=== PATIENT | female | born 2000 | race Caucasian/White ===

== ENCOUNTER → 2019-12-14 | Outpatient (CLI) | payer OTHER ==
--- NOTE | 2019-12-14 15:50 | RAD ---
EXAM: Left foot, 3 views. HISTORY: Twisting injury. COMPARISON: None. FINDINGS: 3 views of the left foot are obtained. There is no fracture, dislocation or subluxation. IMPRESSION: No acute osseous finding. Electronically signed by: Maddie Ivan MD (12/14/2019 3:47 PM) [id number]
== END ==
LOC: DXRAD 15:21
PROVIDERS: ATTEND Family Medicine
DX: M79.672 Pain in left foot (principal)
CPT/HCPCS: 73630

== ENCOUNTER → 2020-10-06 | Outpatient (CLI) | payer OTHER ==
[~2020-10-06] MED LIST: IOHEXOL 240 MG/ML 50ML VIAL. PO ONE; IOHEXOL 300 MG/ML 75 ML VIAL. IV ONE
--- NOTE | 2020-10-06 16:52 | RAD ---
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 Comparisons: None FINDINGS: Uterus measures 8.5 x 3.6 cm. Endometrium is 4 mm in thickness. Right ovary measures 5.2 x 2.6 x 2.6 cm. Left ovary measures 4.0 x 2.5 x 1.8 cm. Vascular flow identified within the ovaries bilaterally. IMPRESSION: 1. Normal sonographic appearance of the ovaries bilaterally. No evidence for torsion. 2. Normal sonographic appearance of the uterus. Electronically signed by: Cesilia Leonard MD (10/06/2020 4:50 PM) [facility]
--- NOTE | 2020-10-06 19:01 | RAD ---
PQRS Compliance Statement: One or more of the following individualized dose reduction techniques were utilized for this examinat ion: 1. Automated exposure control 2. Adjustment of the mA and/or kV according to patient size 3. Use of iterative reconstruction technique CT ABDOMEN+PELVIS W Clinical Indication: Reason: RLQ PAIN / Comparison: None. Technique: Helical CT imaging of the abdomen and pelvis is performed after 75 cc of Omnipaque 300 IV contrast. Oral contrast not administered. Findings: The lung bases are clear. Cardiac size is normal. The liver, gallbladder, spleen, pancreas, adrenal glands, abdominal aorta, and kidneys are normal. Th ere is bifid left collecting system. There is no obvious abnormality of the stomach. There is no dilated small bowel. The appendix is norm al. Scattered stool in the colon. There is no colon wall thickening. No abdominal adenopathy or free fluid. There is mild pelvic free fluid. There are small ovarian follicles bilaterally. Uterus is anteverted. Question arcuate uterus. Urinary bladder is not well distended accentuating the wall thickness. No i nguinal adenopathy. No acute bone abnormality. IMPRESSION: 1. No acute abdominal or pelvic abnormality. The appendix is normal. 2. Mild pelvic free fluid, probably physiologic. Electronically signed by: Dakota Lewis MD (10/06/2020 6:59 PM) [facility]
== END ==
LOC: US 15:55
PROVIDERS: ATTEND Specialist
DX: N83.02 Follicular cyst of left ovary (principal); N83.01 Follicular cyst of right ovary; N32.89 Other specified disorders of bladder
CPT/HCPCS: 74177; 76856; Q9966; Q9967

== ENCOUNTER 2021-06-15 12:01 | Emergency (ER) | payer BC, OTHER ==
[~2021-06-15] VITALS: Ht 165.1 cm; Wt 102.3 kg
[2021-06-15 12:39] VITALS: BP 128/75
--- NOTE | 2021-06-15 13:02 | PHYS DOC ---
Past History Past Medical History: Migraines Additional Past Medical Histor: POTS (DEEDEE MANCIA) Past Surgical History: No Surgical History (DEEDEE MANCIA) Smoking: Non-smoker Alcohol Use: None Drug Use: None (DEEDEE MANCIA) General Adult EDM: Chief Complaint: CHEST PAIN HPI: HPI: Patient is a 21 year old female with history of POTS and cyclic vomiting syndrome who presents with an episode of chest tightness and palpitations that occurred at work this morning. She reports her chest tightness 4/10 and nonradiating. Patient states that she was sitting at her desk when her symptoms began. Patient describes it as "adrenaline coursing through my body." She states that her heart rate was in the 150s and then dropped to 44 bpm. She reports associated diaphoresis and shortness of breath. She reports she was diagnosed with postural orthostatic tachycardia syndrome 1-1/2-2 years ago. Patient denies fever, chills, cough. Patient reports she is a social drinker but does not use any illicit drugs. Patient has no other complaints at this time. (DEEDEE MANCIA) Review of Systems: Review of Systems: Constitutional: See HPI Respiratory: See HPI Cardiovascular: See HPI GI: Denies abdominal pain, nausea, vomiting, bloody stools or diarrhea : Denies dysuria or hematuria Musculoskeletal: Denies back pain or joint pain Integument: Denies rash or other skin lesions Neurologic: Denies headache, focal weakness or sensory changes Endocrine: Denies polyuria or polydipsia Psychiatric: Denies depression or anxiety (DEEDEE MANCIA) Allergies: Allergies: Allergies Coded Allergies Type Severity Reaction Last Updated Verified No Known Drug Allergies 12/30/13 No (DEEDEE MANCIA) Physical Exam: PE: Constitutional: Well developed, well nourished, no acute distress, non-toxic appearance. Cardiovascular: Heart rate regular rhythm, no murmur. Lungs & Thorax: Bilateral breath sounds clear to auscultation. Abdomen: Bowel sounds normal, soft, no tenderness, no masses, no pulsatile masses. Skin: Warm, dry, no erythema, no rash. Extremities: No tenderness, no cyanosis, no clubbing, ROM intact, no edema. Neurologic: Alert and oriented X 3, normal motor function, normal sensory function, no focal deficits noted. Psychologic: Affect normal, judgement normal, mood normal. (DEEDEE MANCIA) Current Patient Data: Vital Signs: Vital Signs Date Time Temp Pulse Resp B/P (MAP) Pulse Ox O2 Delivery O2 Flow Rate FiO2 06/15/21 12:39 98.7 84 18 128/75 (92) 99 Room Air (DEEDEE MANCIA) EKG: EKG: EKG Interpreted by Dr. Herron at 1211: Regular rate and rhythm 89 bpm with no ectopic beats. No concerning ST-T wave changes. Regular QR interval. (DEEDEE MANCIA) Radiology/Procedures: Radiology/Procedures: PROCEDURE: PORTABLE CHEST 1V Study: XR CHEST 1V Indication: Chest pain. Tachycardia. Comparison: None. Findings: The cardiomediastinal silhouette and jodi are within normal limits. No localized airspace opacity, pleural effusion or pneumothorax. Impression: No acute radiographic abnormality of the chest. Electronically signed by: KAI HARMON MD (06/15/2021 1:07 PM) [facility] (DEEDEE MANCIA) Heart Score: C/O Chest Pain: Yes HEART Score for Chest Pain: HEART Score for Chest Pain Response (Comments) Value History Moderately Suspicious 1 ECG Normal 0 Age < 45 0 Risk Factors No Risk Factors 0 Troponin < Normal Limit 0 Total 1 Risk Factors: Risk Factors: none Risk Scores: Score 0 - 3: 2.5% MACE over next 6 weeks - Discharge Home Score 4 - 6: 20.3% MACE over next 6 weeks - Admit for Clinical Observation Score 7 - 10: 72.7% MACE over next 6 weeks - Early Invasive Strategies (DEEDEE MANCIA) Course & Med Decision Making: Course & Med Decision Making Pertinent Labs and Imaging studies reviewed. (See chart for details) Upon arrival to the emergency department, patient symptoms have resolved. Patient work-up will include EKG, troponin, lab work, chest x-ray, urinalysis. Work-up today is largely unremarkable. Patient is discharged home with instruction to be sure to take in adequate salt and plenty of fluids. Patient should return to the emergency department if her symptoms return. Patient understands and is agreeable to discharge plan. (DEEDEE MANCIA) Dragon Disclaimer: Dragon Disclaimer: This electronic medical record was generated, in whole or in part, using a voice recognition dictation system. (DEEDEE MANCIA) Attending Co-Sign The patient was seen and interviewed as well as examined at the bedside. The chart was reviewed. The case was discussed. Agree with the plan of care. (ANDREZ HERRON DO) Departure Departure: Impression: Primary Impression: Well adult health check Additional Impression: POTS (postural orthostatic tachycardia syndrome) Disposition: HOME / SELF CARE / HOMELESS Condition: STABLE Referrals: XAVIER OLIVER MD (PCP) Patient Instructions: Postural Orthostatic Tachycardia Syndrome Additional Instructions: Your work-up today did not reveal any emergent or urgent cardiac pathology. Be sure to take in plenty of fluids and eat a sufficient amount of dietary salt. Additionally, if you do have episodes of tachycardia, make sure that you find a safe place to sit or lie down until your symptoms resolve. You may follow-up with your PCP for recurrent or increasing episodes. Please return to the emergency department if your symptoms return or you develop new symptoms. DEEDEE MNACIA Jun 15, 2021 13:02 ANDREZ HERRON DO Jun 16, 2021 06:40
[2021-06-15 13:07] LABS: POTASSIUM ISTAT 3.6 mmol/L (3.5-5.0)
[2021-06-15 13:08] LABS: HEMOGLOBIN ISTAT 13.3 gm/dL
--- NOTE | 2021-06-15 13:09 | RAD ---
Study: XR CHEST 1V Indication: Chest pain. Tachycardia. Comparison: None. Findings: The cardiomediastinal silhouette and jodi are within normal limits. No localized airspace opacity, pl eural effusion or pneumothorax. Impression: No acute radiographic abnormality of the chest. Electronically signed by: KAI HARMON MD (06/15/2021 1:07 PM) [facility]
[2021-06-15 13:16] LABS: BASO % 1 % (0-3); EOS # 0.1 x10^3/uL (0.0-0.7); EOS % 1 % (0-3); HEMATOCRIT 37.7 % (36.0-47.0); HEMOGLOBIN 12.3 g/dL (12.0-15.5); LYMPH % 22 % (24-48); MEAN CORPUSCULAR HEMOGLOBIN 28 pg (25-35); MEAN CORPUSCULAR HGB CONC 33 g/dL (31-37); MEAN CORPUSCULAR VOLUME 87 fL (79-100); MONO # 0.8 x10^3/uL (0.0-1.1); MONO % 9 % (0-9); NEUT # 6.3 x10^3uL (1.8-7.7); NEUT % 68 % (31-73); PLATELET COUNT 251 x10^3/uL (140-400); RED BLOOD COUNT 4.33 x10^6/uL (3.50-5.40); RED CELL DISTRIBUTION WIDTH 14.4 % (11.5-14.5); WHITE BLOOD COUNT 9.3 x10^3/uL (4.0-11.0)
[2021-06-15 13:31] LABS: BILIRUBIN,URINE NEG (NEG); CLARITY,URINE CLEAR; COLOR,URINE YELLOW; GLUCOSE,URINE NEG (NEG)
[2021-06-15 13:32] LABS: BACTERIA,URINE 0 /HPF (0-FEW); NITRITE,URINE NEG (NEG); UROBILINOGEN,URINE 0.2 mg/dL (0.2 mg/dL); WBC,URINE 0 /HPF (0-4)
[2021-06-15 16:08] LABS: ALBUMIN 3.8 g/dL (3.4-5.0); DIRECT BILIRUBIN 0.1 mg/dL (0.0-0.2); TOTAL BILIRUBIN 0.4 mg/dL (0.2-1.0); TOTAL PROTEIN 7.5 g/dL (6.4-8.2)
--- NOTE | 2021-06-15 20:35 | EKG ---
[address] [address] Test Date: 2021-06-15 Test Time: 12:09:50 Pat Name: ALEA AL Department: Room: Gender: F Stock Controller: KADY : 2000 Requested By: DEEDEE MANCIA Order Number: [id number] Reading MD: Jake Gross MD Measurements Intervals [place] Rate: 89 P: 32 VA: 150 QRS: 31 QRSD: 82 T: 19 QT: 340 QTc: 415 Interpretive Statements SINUS RHYTHM Electronically Signed On 06-16-2021 9:24:03 [employer]ACILITY MAINTENANCE SUPERVISOR by Jake Gross MD
== END 2021-06-15 13:50 | disposition home or self-care (01) ==
LOC: ER 12:01
DX: Z00.00 Encounter for general adult medical examination without abnormal findings (principal); I49.8 Other specified cardiac arrhythmias; G43.909 Migraine, unspecified, not intractable, without status migrainosus
CPT/HCPCS: 36415; 71045; 80047; 80076; 81001; 81025; 84484; 85025; 93005; 99285